=== PATIENT | female | born 2000 | race Caucasian/White ===

== ENCOUNTER 2019-12-30 21:36 | Emergency (ER) | payer SELFPAY ==
--- NOTE | 2019-12-30 22:29 | ER Document Report ---
ED Medical Screen (RME) - General Chief Complaint: Vaginal Discharge Stated Complaint: VAGINAL PAIN Time Seen by Provider: 12/30/19 22:22 Notes: HPI: 19-year-old female presenting with intermittent pelvic pain, intermittent vaginal spotting and vaginal discharge over the last 2 months. Patient had dyspareunia tonight which prompted her visit to the emergency department. No fever. Denies nausea vomiting PHYSICAL EXAMINATION: exam deferred in triage mild tenderness over the suprapubic region on palpation I have greeted and performed a rapid initial assessment of this patient. A comprehensive ED assessment and evaluation of the patient, analysis of test results and completion of medical decision making process will be conducted by an additional ED providers. - Related Data Allergies/Adverse Reactions: No Known Allergies Allergy (Verified 12/30/19 22:19) Physical Exam - Vital signs Vitals: Temp Pulse Resp BP Pulse Ox 98.0 F 93 16 138/90 H 100 12/30/19 21:43 12/30/19 21:43 12/30/19 21:43 12/30/19 21:43 12/30/19 21:43 Course - Vital Signs Vital signs: Temp Pulse Resp BP Pulse Ox 98.0 F 93 16 138/90 H 100 12/30/19 21:43 12/30/19 21:43 12/30/19 21:43 12/30/19 21:43 12/30/19 21:43
[2019-12-30 23:26] LABS: APPEARANCE,URINE CLEAR; BILIRUBIN,URINE NEGATIVE (NEGATIVE); COLOR,URINE YELLOW; GLUCOSE, URINE NEGATIVE (NEGATIVE); KETONES,URINE NEGATIVE (NEGATIVE); LEUKOCYTE ESTERASE,URINE NEGATIVE (NEGATIVE); NITRITE,URINE NEGATIVE (NEGATIVE); PROTEIN,URINE NEGATIVE (NEGATIVE); URINE SPECIFIC GRAVITY 1.025; UROBILINOGEN,URINE NEGATIVE mg/dL (<2.0)
--- NOTE | 2019-12-30 23:52 | ER Document Report ---
ED General - General Chief Complaint: Vaginal Discharge Stated Complaint: VAGINAL PAIN Time Seen by Provider: 12/30/19 22:22 - HPI Notes: 19-year-old female presents with pain "down there". Patient states she has been having vaginal pain for the past 2 months. Initially pain was intermittent but now seems to be occurring on a daily basis. Usually experiences pain with intercourse, however today experience pain with urination, felt like a stabbing sensation. Additionally did have pain with intercourse the night. Patient states that she applied Neosporin to her vagina in case that there was an infection present. She is also having a white vaginal discharge. She is currently sexually active, no OCP use. - Related Data Allergies/Adverse Reactions: No Known Allergies Allergy (Verified 12/30/19 22:19) Past Medical History - General Information source: Patient - Social History Smoking Status: Never Smoker Family History: Reviewed & Not Pertinent Review of Systems - Review of Systems Constitutional: No symptoms reported EENT: No symptoms reported Cardiovascular: No symptoms reported Respiratory: No symptoms reported Gastrointestinal: No symptoms reported Genitourinary: See HPI Female Genitourinary: See HPI Musculoskeletal: No symptoms reported Skin: No symptoms reported Hematologic/Lymphatic: No symptoms reported Neurological/Psychological: No symptoms reported Physical Exam - Vital signs Vitals: Temp Pulse Resp BP Pulse Ox 98.0 F 93 16 138/90 H 100 12/30/19 21:43 12/30/19 21:43 12/30/19 21:43 12/30/19 21:43 12/30/19 21:43 - General General appearance: Appears well, Alert In distress: None - HEENT Head: Normocephalic, Atraumatic Extraocular movements intact: Yes Pupils: PERRL - Respiratory Respiratory status: No respiratory distress - Cardiovascular Rhythm: Regular - Abdominal Tenderness: Nontender - Genitourinary External exam: Normal. No: Lesions Speculum exam: Vaginal discharge - Whitish-yellow, Other - Cervical irritation Vaginal bleeding: None Bimanuel exam: No: Cervical motion tender, Adnexal tenderness - Extremities General upper extremity: Normal ROM General lower extremity: Normal ROM - Neurological Neuro grossly intact: Yes Cognition: Normal Orientation: AAOx4 - Psychological Associated symptoms: Normal affect - Skin Skin Temperature: Warm Course - Re-evaluation Re-evalutation: 19-year-old female with intermittent pelvic pain and vaginal discharge ongoing for 2 months. Occurs mainly with intercourse, patient concern for infection. On exam she is well-appearing, afebrile, abdomen nontender. Pelvic exam r evealed a whitish-yellow vaginal discharge, some cervical irritation, no CMT or adnexal tenderness. Swabs sent, concern for STD versus BV versus yeast infection. Given lack of tenderness do not feel that ultrasound is warranted at this time. 12/31/19 02:31 GC swab negative. Wet prep concerning for bacterial vaginosis, Flagyl prescribed. Patient given return cautions, stable at time of discharge. - Vital Signs Vital signs: Temp Pulse Resp BP Pulse Ox 98.0 F 93 16 138/90 H 100 12/30/19 21:43 12/30/19 21:43 12/30/19 21:43 12/30/19 21:43 12/30/19 21:43 Discharge - Discharge Clinical Impression: Bacterial vaginosis Disposition: HOME, SELF-CARE Instructions: Vaginosis, Bacterial ([facility]) Additional Instructions: Begin Flagyl for bacterial vaginosis, do not drink any alcohol with taking this medicine as it will make you extremely sick. Please follow-up with your primary care doctor and would advise you to see [facility] in the future. Return to the emergency department for any concerning worsening symptoms. Prescriptions: Metronidazole [Flagyl] 500 mg PO BID #14 tablet
[2019-12-31 00:53] LABS: BACTERIA (WET MOUNT) 3+ BACTERIA SEEN; EPITHELIALS (WET MOUNT) 3+ EPITHELIALS SEEN; RBCS (WET MOUNT) RARE RBCS SEEN; T.VAGINALIS (WET MOUNT) NO TRICHOMONAS SEEN; WBCS (WET MOUNT) 2+ WBCS SEEN; YEAST (WET MOUNT) NO YEAST SEEN
[2019-12-31 02:26] LABS: CHLAM PCR NOT DETECTED (NOT DETECT)
[2019-12-31 03:11] VITALS: BP 122/77
== END 2019-12-31 03:10 | disposition home or self-care (01) ==
LOC: ER 21:36
DX: N76.0 Acute vaginitis (principal); B96.89 Other specified bacterial agents as the cause of diseases classified elsewhere; R10.2 Pelvic and perineal pain; R30.0 Dysuria
CPT/HCPCS: 81001; 81025; 87210; 87491; 87591; 99284